=== PATIENT | male | born 1995 | race African-American/Black ===

== ENCOUNTER 2017-11-27 16:47 | Emergency (ER) | payer SELFPAY ==
[~2017-11-27] VITALS: Ht 170.2 cm; Wt 70.3 kg
--- NOTE | 2017-11-27 21:39 | NUR ---
Patient discharged to home in stable conditon. Written and verbal after care instructions given. Patient verbalizes understanding of instructions.
== END 2017-11-27 21:39 | disposition home or self-care (01) ==
LOC: ER 16:47
DX: S06.0X0A Concussion without loss of consciousness, initial encounter (principal); V49.9XXA Car occupant (driver) (passenger) injured in unspecified traffic accident, initial encounter; Y93.89 Activity, other specified; Y92.413 State road as the place of occurrence of the external cause; Y99.8 Other external cause status
CPT/HCPCS: 70450; 99284; A4663